=== PATIENT | male | born 1970 | race Caucasian/White ===

== ENCOUNTER 2018-08-03 15:02 | Inpatient (IN) | payer BC, OTHER ==
[2018-08-03 16:06] VITALS: BMI 25.1
--- NOTE | 2018-08-03 18:03 | HP ---
COWS - Scale Resting Pulse: 0= [place] 80 or Below Sweatin= Chills/Flushing Restless Observation: 1= Difficult to Sit Still Pupil Size: 1= Pupils >than Normal Bone or Joint Aches: 2= Severe Diffuse Aches Runny Nose/ Eye Tearin= Runny Nose/Eyes GI Upset > 30mins: 1= Stomach Cramp Tremor Observation: 1= Tremor [place], Not Seen Yawning Observation: 1= 1-2x During Session Anxiety or Irritability: 2=Irritable/Anxious Goose Flesh Skin: 0=Smooth Skin COWS Score: 12 Admission ROS S - HPI Chief Complaint: WITHDRAWAL SYMPTOMS Allergies/Adverse Reactions: Allergies Allergy/AdvReac Type Severity Reaction Status Date / Time No Known Allergies Allergy Verified 08/03/18 16:54 History of Present Illness: 47 Y.O. MAN WITH A 4 YEAR HISTORY OF HEROIN DEPENDENCE IS HERE SEEKING DETOX. HE REPORTS THE LAST COMPLETED DETOX AND REHAB IN [place] IN October,. DOES NOT HAVE A SIGNIFICANT PERIOD OF DRUG ABSTINENCE. PT. HAS A HISTORY OF ALCOHOL AND COCAINE DEPENDENCE AND REPORTS HE HAS BEEN SOBER/ABSTINENT SINCE 2012. Exam Limitations: No Limitations - Ebola screening Have you traveled outside of the country in the last 21 days: No Have you had contact with anyone from an Ebola affected area: No Have you been sick,other than usual withdrawal symptoms: No - Review of Systems Constitutional: Loss of Appetite EENT: reports: No Symptoms Reported Respiratory: reports: No Symptoms reported Cardiac: reports: No Symptoms Reported GI: reports: Poor Appetite, Abdominal cramping : reports: No Symptoms Reported Musculoskeletal: reports: Back Pain Integumentary: reports: No Symptoms Reported Endocrine: reports: No Symptoms Reported Hematology: reports: No Symptoms Reported Psychiatric: reports: Orientated x3, Depressed Other Systems: Reviewed and Negative Patient History - Patient Medical History Hx Anemia: No Hx Asthma: No Hx Chronic Obstructive Pulmonary Disease (COPD): No Hx Cancer: No Hx Cardiac Disorders: No Hx Congestive Heart Failure: No Hx Hypertension: No Hx Hypercholesterolemia: Yes (NOT ON MEDS ) Hx Pacemaker: No HX Cerebrovascular Accident: No Hx Seizures: No Hx Dementia: No Hx Diabetes: No Hx Gastrointestinal Disorders: No Hx Liver Disease: No Hx Genitourinary Disorders: No Hx Sexually Transmitted Disorders: No Hx Renal Disease (ESRD): No Hx Thyroid Disease: No Hx Human Immunodeficiency Virus (HIV): No Hx Hepatitis C: No Hx Depression: Yes Hx Suicide Attempt: No Hx Bipolar Disorder: No Hx Schizophrenia: No - Patient Surgical History Past Surgical History: No Hx Neurologic Surgery: No Hx Cataract Extraction: No Hx Cardiac Surgery: No Hx Lung Surgery: No Hx Breast Surgery: No Hx Breast Biopsy: No Hx Abdominal Surgery: No Hx Appendectomy: No Hx Cholecystectomy: No Hx Genitourinary Surgery: No Hx Section: No Hx Orthopedic Surgery: No Anesthesia Reaction: No - PPD History Previous Implant?: Yes Documented Results: Negative w/o proof Implanted On Prior R Admission?: No PPD to be Administered?: No - Reproductive History Patient is a Female of Child Bearing Age (11 -55 yrs old): No - Smoking Cessation Smoking history: Current every day smoker Aproximately how many cigarettes per day: 20 Hx Chewing Tobacco Use: No Initiated information on smoking cessation: Yes 'Breaking Loose' booklet given: 08/03/18 - Substance & Tx. History Hx Alcohol Use: Yes (SOBER: 2012) Hx Substance Use: Yes Substance Use Type: Heroin Hx Substance Use Treatment: Yes (DETOX AND REHAB: 10/2017 IN [place] ) - Substances Abused Heroin Route: Inhalation Frequency: Daily Amount used: 10 BAGS Age of first use: 44 Date of Last Use: 08/03/18 Family Disease History - Family Disease History Family Disease History: Respiratory: Father (ETOH DEPENDENCE; COPD- ) Admission Physical Exam BHS - Vital Signs Vital Signs: Vital Signs - 24 hr 08/03/18 16:01 Temperature 97 F L Pulse Rate 73 Respiratory 20 Rate Blood Pressure 114/76 - Physical General Appearance: Yes: Sweating, Anxious HEENTM: Yes: Hearing grossly Normal, Normal ENT Inspection, Normocephalic Respiratory: Yes: Chest Non-Tender, Lungs Clear, Normal Breath Sounds, No Respiratory Distress, No Accessory Muscle Use Neck: Yes: Within Normal Limits Breast: Yes: Breast Exam Deferred Cardiology: Yes: Regular Rhythm, Regular Rate Abdominal: Yes: Normal Bowel Sounds, Non Tender Genitourinary: Yes: Other (NO COMPLAINTS REPORTED) Back: Yes: Normal Inspection Musculoskeletal: Yes: Back pain Extremities: Yes: Normal Capillary Refill, Normal Inspection, Normal Range of Motion, Non-Tender Neurological: Yes: Alert, Motor Strength 5/5, Normal Mood/Affect, Normal Response Integumentary: Yes: Normal Color, Dry, Warm Lymphatic: Yes: Within Normal Limits - Diagnostic (1) Opioid dependence with withdrawal Current Visit: Yes Status: Chronic (2) Alcohol dependence in remission Current Visit: Yes Status: Resolved (3) Cocaine dependence in remission Current Visit: Yes Status: Resolved (4) Nicotine dependence Current Visit: Yes Status: Chronic Cleared for Admission [facility] - Detox or Rehab [facility] Level of Care: Medically Managed Detox Regimen/Protocol: Methadone [facility] Breath Alcohol Content Breath Alcohol Content: 0 Urine Drug Screen - Results Drug Screen Negative: No Urine Drug Screen Results: OPI-Opiates, OXY-Oxycodone, FEN-Fentanyl
[2018-08-03] MEDS ORDERED: guaiFENesin/D-METHORPHAN HB 10 ML UNIT-DOSE CUPS PO PRN (18:17)
[2018-08-03] MEDS ORDERED: hydrOXYzine PAMOATE 50 MG CAPSULE (FP) PO PRN (18:17)
[2018-08-03] MEDS ORDERED: ACETAMINOPHEN 325 MG TABLET (FP) PO PRN (18:17)
[2018-08-03] MEDS ORDERED: MAGNESIUM HYDROX 2400MG/30ML ORAL SUSPENSION 30 ML CUP PO PRN (18:17)
[2018-08-03] MEDS ORDERED: NICOTINE POLACRILEX 2 MG GUM BC PRN (18:17)
[2018-08-03] MEDS ORDERED: P-EPHED 60MG/TRIPROLIDI 2.5MG TABLET PO PRN (18:17)
[2018-08-03] MEDS ORDERED: MAGNESIUM CITRATE 300 ML BOTTLE PO PRN (18:17)
[2018-08-03] MEDS ORDERED: LOPERAMIDE HCL 2 MG CAPSULE PO PRN (18:17)
[2018-08-03] MEDS ORDERED: MAG HYDROX/AL HYDROX/SIMETH 30 ML UNIT-DOSE CUP PO PRN (18:17)
[2018-08-03] MEDS ORDERED: MENTHOL/PHENOL 1 EACH UD MM PRN (18:17)
[2018-08-03] MEDS ORDERED: METHADONE HCL 10 MG TABLET (FOR DETOX USE ONLY) PO ONE ×2 (18:45→23:00)
[2018-08-03] MEDS: diazePAM 5 MG TABLET PO PRN (19:10)
[2018-08-03] MEDS ORDERED: MELATONIN 5 MG TABLETS PO PRN (22:00)
[2018-08-03] MEDS: THIAMINE HCL 100 MG TABLET (FP) PO SCH (22:29)
[2018-08-03 23:19] LABS: URINE APPEARANCE CLEAR; URINE BILIRUBIN NEGATIVE (<2.0 mg/dL); URINE COLOR YELLOW; URINE GLUCOSE (UA) NEGATIVE (NEGATIVE); URINE KETONE NEGATIVE (NEGATIVE); URINE LEUK ESTERASE NEGATIVE (NEGATIVE); URINE NITRITE NEGATIVE (NEGATIVE); URINE PROTEIN NEGATIVE (NEGATIVE); URINE UROBILINOGEN NEGATIVE mg/dL (0.2-1.0)
[2018-08-04] MEDS ORDERED: METHADONE HCL 10 MG TABLET (FOR DETOX USE ONLY) PO ONE (10:00)
[2018-08-04 10:05] LABS: HEMATOCRIT 46.1 % (35.4-49); HEMOGLOBIN 15.3 GM/dL (11.7-16.9); MCH 30.4 pg (25.7-33.7); MCHC 33.3 g/dl (32.0-35.9); MEAN CELL VOLUME 91.3 fl (80-96); MEAN PLT VOLUME 9.8 fl (7.5-11.1); PLATELET COUNT 231 K/MM3 (134-434); RBC 5.05 M/mm3 (4.00-5.60); RDW 13.5 % (11.9-15.9); WHITE BLOOD COUNT 7.4 K/mm3 (4.0-10.0)
[2018-08-04 10:29] LABS: ALBUMIN 3.5 g/dl (3.4-5.0); ALK PHOS 80 U/L (45-117); ANION GAP 6 MMOL/L (8-16); BILIRUBIN,TOTAL 0.4 mg/dL (0.2-1); BLOOD UREA NITROGEN 9 mg/dL (7-18); CALCIUM 9.1 mg/dL (8.5-10.1); CHLORIDE 99 mmol/L (98-107); CO2 29 mmol/L (21-32); CREATININE 0.7 mg/dL (0.55-1.3); GLUCOSE,RANDOM 80 mg/dL (74-106); POTASSIUM 4.7 mmol/L (3.5-5.1); SGOT/AST 62 U/L (15-37); SGPT/ALT 97 U/L (13-61); SODIUM 135 mmol/L (136-145); TOT PROT 6.6 g/dl (6.4-8.2)
[2018-08-04] MEDS: NICOTINE 21 MG/24 HOURS TOPICAL PATCH TD SCH (10:37)
[2018-08-04] MEDS: PRENATAL VITAMINS W/ FOLIC ACID TABLET (FP) PO SCH (10:37)
[2018-08-04] MEDS: diazePAM 5 MG TABLET PO PRN ×3 (10:38→22:29)
--- NOTE | 2018-08-04 12:14 | EKG ---
Test Reason : Blood Pressure : / mmHG Vent. Rate : 058 BPM Atrial Rate : 058 BPM P-R Int : 168 ms QRS Dur : 090 ms QT Int : 418 ms P-R-T Axes : 048 063 049 degrees QTc Int : 410 ms SINUS BRADYCARDIA OTHERWISE NORMAL ECG WHEN COMPARED WITH ECG OF 16-OCT-2017 08:52, NO SIGNIFICANT CHANGE WAS FOUND Confirmed by MILLY ANDRE MD ([id number]) on 08/04/2018 12:14:01 PM Referred By: Confirmed By:MLILY ANDRE MD
--- NOTE | 2018-08-04 15:07 | PN ---
BHS COWS - Scale Resting Pulse: 0= [place] 80 or Below Sweatin= Chills/Flushing Restless Observation: 3= Extraneous Movement Pupil Size: 1= Pupils >than Normal Bone or Joint Aches: 2= Severe Diffuse Aches Runny Nose/ Eye Tearin= Runny Nose/Eyes GI Upset > 30mins: 2= Nausea/Diarrhea Tremor Observation of Outstretched Hands: 2= Slight Tremor Visible Yawning Observation: 1= 1-2x During Session Anxiety or Irritability: 2=Irritable/Anxious Goose Flesh Skin: 0=Smooth Skin COWS Score: 16 BHS Progress Note (SOAP) Subjective: Interrupted sleep Objective: 08/04/18 15:08 Last Vital Signs Temp Pulse Resp BP Pulse Ox 98.8 F 63 18 104/70 08/04/18 09:33 08/04/18 09:33 08/04/18 09:33 08/04/18 09:33 Laboratory Tests 08/03/18 08/04/18 08/04/18 23:00 07:00 07:00 WBC 7.4 RBC 5.05 Hgb 15.3 Hct 46.1 MCV 91.3 MCH 30.4 MCHC 33.3 RDW 13.5 Plt Count 231 MPV 9.8 D Sodium 135 L Potassium 4.7 Chloride 99 Carbon Dioxide 29 Anion Gap 6 L BUN 9 Creatinine 0.7 Creat Clearance w eGFR > 60 Random Glucose 80 Calcium 9.1 Total Bilirubin 0.4 AST 62 H ALT 97 H Alkaline Phosphatase 80 Total Protein 6.6 Albumin 3.5 Urine Color Yellow Urine Appearance Clear Urine pH 6.0 Ur Specific [place] 1.020 Urine Protein Negative Urine Glucose (UA) Negative Urine Ketones Negative Urine Blood Negative Urine Nitrite Negative Urine Bilirubin Negative Urine Urobilinogen Negative Ur Leukocyte Esterase Negative RPR Titer 08/04/18 07:00 WBC RBC Hgb Hct MCV MCH MCHC RDW Plt Count MPV Sodium Potassium Chloride Carbon Dioxide Anion Gap BUN Creatinine Creat Clearance w eGFR Random Glucose Calcium Total Bilirubin AST ALT Alkaline Phosphatase Total Protein Albumin Urine Color Urine Appearance Urine pH Ur Specific [place] Urine Protein Urine Glucose (UA) Urine Ketones Urine Blood Urine Nitrite Urine Bilirubin Urine Urobilinogen Ur Leukocyte Esterase RPR Titer Nonreactive Labs reviewed Assessment: 08/04/18 15:09 Withdrawal sxs Plan: Continue detox Encouraged PO water hydration
--- NOTE | 2018-08-04 15:19 | CONSULT ---
[facility] Psychiatric Consult - Data Date of interview: 08/04/18 Admission source: [facility] Identifying data: Patient is a 47 year old single male, without children, unemployed, domiciled, and supported by disability benefits. This is one of multiple admissions for patient. Patient admitted for opiate dependence. Substance Abuse History: Smoking Cessation. Smoking history: Current every day smoker. Aproximately how many cigarettes per day: 20. Hx Chewing Tobacco Use: No. Initiated information on smoking cessation: Yes. 'Breaking Loose' booklet given: 08/03/18. - Substance & Tx. History. Hx Alcohol Use: Yes (SOBER: 2013) . Hx Substance Use: Yes. Substance Use Type: Heroin. Hx Substance Use Treatment: Yes (DETOX AND REHAB: 10/2017 IN [place] ). - Substances Abused. Heroin. Route: Inhalation. Frequency: Daily. Amount used: 10 BAGS. Age of first use: 44. Date of Last Use: 08/03/18 Medical History: hypercholesterolemia Psychiatric History: Patient denies h/o psychiatric hospitalization. Outpatient psychiatric care is provided in [place]. He is currently prescribed lexapro 10mg for depression although reports medication noncompliance for several weeks. He refuses to restart medication while in detox. Patient denies h/o suicide attempt. Physical/Sexual Abuse/Trauma History: denies. Mental Status Exam - Mental Status Exam Alert and Oriented to: Time, Place, Person Cognitive Function: Good Patient Appearance: Well Groomed Mood: Euthymic Affect: Mood Congruent Patient Behavior: Fatigued, Cooperative Speech Pattern: Appropriate Voice Loudness: Normal Thought Process: Intact, Goal Oriented Thought Disorder: Not Present Hallucinations: Denies Suicidal Ideation: Denies Homicidal Ideation: Denies Insight/Judgement: Poor Sleep: Fair Appetite: Fair Muscle strength/Tone: Normal Gait/Station: Normal Psychiatric Findings - Problem List ([place] 1, 2,3) (1) Substance induced mood disorder Current Visit: Yes Status: Acute (2) Opioid dependence with withdrawal Current Visit: Yes Status: Acute (3) Nicotine dependence Current Visit: Yes Status: Chronic - Initial Treatment Plan Initial Treatment Plan: Psychoeducation provided. Detoxification in progress. Observation.
[2018-08-04] MEDS: THIAMINE HCL 100 MG TABLET (FP) PO SCH (22:29)
[2018-08-04] MEDS ORDERED: diphenhydrAMINE HCL 25 MG CAPSULE (FP) PO ONE (22:54)
[2018-08-04] MEDS ORDERED: HYDROCORTISONE 1% TOPICAL CREAM 30 GM TUBE TP PRN (22:54)
[2018-08-05] MEDS ORDERED: METHADONE HCL 5 MG TABLET (FOR DETOX USE ONLY) PO ONE (10:00)
[2018-08-05] MEDS: PRENATAL VITAMINS W/ FOLIC ACID TABLET (FP) PO SCH (10:39)
[2018-08-05] MEDS: NICOTINE 21 MG/24 HOURS TOPICAL PATCH TD SCH (10:40)
[2018-08-05] MEDS: diazePAM 5 MG TABLET PO PRN ×3 (10:40→22:22)
[2018-08-05] MEDS: IBUPROFEN 400 MG TABLET (FP) PO PRN (16:54)
--- NOTE | 2018-08-05 16:56 | PN ---
BHS COWS - Scale Resting Pulse: 0= [place] 80 or Below Sweatin= Chills/Flushing Restless Observation: 3= Extraneous Movement Pupil Size: 0= Normal to Room Light Bone or Joint Aches: 2= Severe Diffuse Aches Runny Nose/ Eye Tearin= Runny Nose/Eyes GI Upset > 30mins: 1= Stomach Cramp Tremor Observation of Outstretched Hands: 2= Slight Tremor Visible Yawning Observation: 1= 1-2x During Session Anxiety or Irritability: 2=Irritable/Anxious Goose Flesh Skin: 0=Smooth Skin COWS Score: 14 S Progress Note (SOAP) Subjective: Back pain, interrupted sleep, sweating Objective: 08/05/18 16:55 Last Vital Signs Temp Pulse Resp BP Pulse Ox 96.4 F L 77 18 119/71 08/05/18 14:31 08/05/18 14:31 08/05/18 14:31 08/05/18 14:31 Laboratory Tests 08/03/18 08/04/18 08/04/18 23:00 07:00 07:00 WBC 7.4 RBC 5.05 Hgb 15.3 Hct 46.1 MCV 91.3 MCH 30.4 MCHC 33.3 RDW 13.5 Plt Count 231 MPV 9.8 D Sodium 135 L Potassium 4.7 Chloride 99 Carbon Dioxide 29 Anion Gap 6 L BUN 9 Creatinine 0.7 Creat Clearance w eGFR > 60 Random Glucose 80 Calcium 9.1 Total Bilirubin 0.4 AST 62 H ALT 97 H Alkaline Phosphatase 80 Total Protein 6.6 Albumin 3.5 Urine Color Yellow Urine Appearance Clear Urine pH 6.0 Ur Specific [place] 1.020 Urine Protein Negative Urine Glucose (UA) Negative Urine Ketones Negative Urine Blood Negative Urine Nitrite Negative Urine Bilirubin Negative Urine Urobilinogen Negative Ur Leukocyte Esterase Negative RPR Titer 08/04/18 07:00 WBC RBC Hgb Hct MCV MCH MCHC RDW Plt Count MPV Sodium Potassium Chloride Carbon Dioxide Anion Gap BUN Creatinine Creat Clearance w eGFR Random Glucose Calcium Total Bilirubin AST ALT Alkaline Phosphatase Total Protein Albumin Urine Color Urine Appearance Urine pH Ur Specific [place] Urine Protein Urine Glucose (UA) Urine Ketones Urine Blood Urine Nitrite Urine Bilirubin Urine Urobilinogen Ur Leukocyte Esterase RPR Titer Nonreactive Labs reviewed Assessment: 08/05/18 16:55 Withdrawal sxs Plan: Continue detox Encouraged PO water intake
[2018-08-05] MEDS: THIAMINE HCL 100 MG TABLET (FP) PO SCH (22:22)
[2018-08-05] MEDS: HYDROCORTISONE 1% TOPICAL CREAM 30 GM TUBE TP SCH (22:22)
[2018-08-06] MEDS: diazePAM 5 MG TABLET PO PRN (06:00)
[2018-08-06] MEDS: IBUPROFEN 400 MG TABLET (FP) PO PRN (06:01)
[2018-08-06] MEDS ORDERED: METHADONE HCL 5 MG TABLET (FOR DETOX USE ONLY) PO ONE (10:00)
[2018-08-06] MEDS ORDERED: METHADONE HCL 10 MG TABLET (FOR DETOX USE ONLY) PO ONE (10:16)
--- NOTE | 2018-08-06 10:29 | PN ---
BHS Progress Note (SOAP) Subjective: alert,irritable,anxious,interrupted sleep,pain in the body Objective: 08/06/18 10:25 Vital Signs Temperature 97.2 F L 08/06/18 06:18 Pulse Rate 63 08/06/18 06:18 Respiratory Rate 16 08/06/18 06:18 Blood Pressure 98/58 L 08/06/18 06:18 O2 Sat by Pulse Oximetry (%) Assessment: 08/06/18 10:25 withdrawal symptom Plan: continue detox,medication,,adjust,to be discharged in am
[2018-08-06] MEDS: PRENATAL VITAMINS W/ FOLIC ACID TABLET (FP) PO SCH (10:39)
[2018-08-06] MEDS: HYDROCORTISONE 1% TOPICAL CREAM 30 GM TUBE TP SCH (10:40)
[2018-08-06 11:22] VITALS: BP 104/64; PULSE 73; TEMP 98.6
--- NOTE | 2018-08-06 11:22 | PN ---
[facility] Progress Note Note: patient did not want to complete treatment,declined to give the reason,all attempts to convince patient to stay with no avail, patient signed release ama,risk of withdrawal and relapse explained,patient understood,advise to go to emergency room if any problem
--- NOTE | 2018-08-06 11:49 | DS ---
[facility] Detox Discharge Summary Admission Date: 08/03/18 Discharge Date: 08/06/18 - History Present History: Alcohol Dependence, Cocaine Dependence, Opioid Dependence Additional Comments: patient signed release ama,please see the note Pertinent Past History: nicotine dependence - Physical Exam Results Vital Signs: Vital Signs Temperature 98.6 F 08/06/18 10:00 Pulse Rate 73 08/06/18 10:00 Respiratory Rate 18 08/06/18 10:00 Blood Pressure 104/64 08/06/18 10:00 O2 Sat by Pulse Oximetry (%) Pertinent Admission Physical Exam Findings: withdrawal signs and symptom Laboratory Last Values WBC 7.4 K/mm3 (4.0-10.0) 08/04/18 07:00 RBC 5.05 M/mm3 (4.00-5.60) 08/04/18 07:00 Hgb 15.3 GM/dL (11.7-16.9) 08/04/18 07:00 Hct 46.1 % (35.4-49) 08/04/18 07:00 MCV 91.3 fl (80-96) 08/04/18 07:00 MCH 30.4 pg (25.7-33.7) 08/04/18 07:00 MCHC 33.3 g/dl (32.0-35.9) 08/04/18 07:00 RDW 13.5 % (11.9-15.9) 08/04/18 07:00 Plt Count 231 K/MM3 (134-434) 08/04/18 07:00 MPV 9.8 fl (7.5-11.1) D 08/04/18 07:00 Sodium 135 mmol/L (136-145) L 08/04/18 07:00 Potassium 4.7 mmol/L (3.5-5.1) 08/04/18 07:00 Chloride 99 mmol/L (98-107) 08/04/18 07:00 Carbon Dioxide 29 mmol/L (21-32) 08/04/18 07:00 Anion Gap 6 MMOL/L (8-16) L 08/04/18 07:00 BUN 9 mg/dL (7-18) 08/04/18 07:00 Creatinine 0.7 mg/dL (0.55-1.3) 08/04/18 07:00 Creat Clearance w eGFR > 60 (>60) 08/04/18 07:00 Random Glucose 80 mg/dL (74-106) 08/04/18 07:00 Calcium 9.1 mg/dL (8.5-10.1) 08/04/18 07:00 Total Bilirubin 0.4 mg/dL (0.2-1) 08/04/18 07:00 AST 62 U/L (15-37) H 08/04/18 07:00 ALT 97 U/L (13-61) H 08/04/18 07:00 Alkaline Phosphatase 80 U/L (45-117) 08/04/18 07:00 Total Protein 6.6 g/dl (6.4-8.2) 08/04/18 07:00 Albumin 3.5 g/dl (3.4-5.0) 08/04/18 07:00 Urine Color Yellow 08/03/18 23:00 Urine Appearance Clear 08/03/18 23:00 Urine pH 6.0 (5.0-8.0) 08/03/18 23:00 Ur Specific [place] 1.020 (1.010-1.035) 08/03/18 23:00 Urine Protein Negative (NEGATIVE) 08/03/18 23:00 Urine Glucose (UA) Negative (NEGATIVE) 08/03/18 23:00 Urine Ketones Negative (NEGATIVE) 08/03/18 23:00 Urine Blood Negative (NEGATIVE) 08/03/18 23:00 Urine Nitrite Negative (NEGATIVE) 08/03/18 23:00 Urine Bilirubin Negative (<2.0 mg/dL) 08/03/18 23:00 Urine Urobilinogen Negative mg/dL (0.2-1.0) 08/03/18 23:00 Ur Leukocyte Esterase Negative (NEGATIVE) 08/03/18 23:00 RPR Titer Nonreactive (NONREACTIVE) 08/04/18 07:00 - Medication Discharge Medications: Ambulatory Orders Escitalopram Oxalate [Lexapro -] 10 mg PO DAILY 08/03/18 - AMA Did Patient Leave Against Medical Advice: Yes
[2018-08-07] MEDS ORDERED: METHADONE HCL 5 MG TABLET (FOR DETOX USE ONLY) PO ONE (06:00)
[2018-08-07] MEDS ORDERED: METHADONE HCL 10 MG TABLET (FOR DETOX USE ONLY) PO ONE (10:00)
[2018-08-08] MEDS ORDERED: METHADONE HCL 5 MG TABLET (FOR DETOX USE ONLY) PO ONE (06:00)
== END 2018-08-06 11:00 | disposition left against medical advice (07) | DRG 894 ==
LOC: YASAS 15:02 → Y3N 17:25
PROC: HZ2ZZZZ Detoxification Services for Substance Abuse Treatment (ICD-10-PCS; principal; 2018-08-03)
DX: F11.23 Opioid dependence with withdrawal (principal); F14.20 Cocaine dependence, uncomplicated; F10.230 Alcohol dependence with withdrawal, uncomplicated; F17.210 Nicotine dependence, cigarettes, uncomplicated; F32.9 Major depressive disorder, single episode, unspecified; E78.5 Hyperlipidemia, unspecified; E78.00 Pure hypercholesterolemia, unspecified
CPT/HCPCS: 36415; 80053; 81003; 85027; 86593; 93005; 93010

== ENCOUNTER 2018-09-26 14:10 | Inpatient (IN) | payer OTHER ==
[2018-09-26 17:19] VITALS: BMI 26.6
--- NOTE | 2018-09-26 19:40 | HP ---
"COWS - Scale Resting Pulse: 1= [place] 81-100 Sweatin=Flushed/Facial Moisture Restless Observation: 1= Difficult to Sit Still Pupil Size: 2= Moderately Dilated (Pupils = 4 mm) Bone or Joint Aches: 0= None Runny Nose/ Eye Tearin= Runny Nose/Eyes GI Upset > 30mins: 0= None Tremor Observation: 2= Slight Tremor Visible Yawning Observation: 0= None Anxiety or Irritability: 2=Irritable/Anxious Goose Flesh Skin: 0=Smooth Skin COWS Score: 12 CIWA Score - Admission Criteria OAS Guidelines: Admission for Medically Managed Detox: Requires at least one of the followin. CIWA greater than 12 2. Seizures within the past 24 hours 3. Delirium tremens within the past 24 hours 4. Hallucinations within the past 24 hours 5. Acute intervention needed for co occurring medical disorder 6. Acute intervention needed for co occurring psychiatric disorder 7. Severe withdrawal that cannot be handled at a lower level of care (continued vomiting, continued diarrhea, abnormal vital signs) requiring intravenous medication and/or fluids 8. Admission ROS [facility] Chief Complaint: Here for heroin withdrawal. Allergies/Adverse Reactions: Allergies Allergy/AdvReac Type Severity Reaction Status Date / Time No Known Allergies Allergy Verified 09/26/18 17:48 History of Present Illness: Here for heroin detox. Heroin use began at age 44. States smokes and snorts. Nicotine use since age 16. Alcohol use prior to starting opiates. Denies current alcohol intake at this time. Prescribed Clonazepam 2 mg daily. States it goes good w/ the heroin. Encourage to d/c clonazepam. Longest period of sobriety is 40-50 days while using AA. Denies hx seizures, blackouts or overdose. Hx constipation which aggravates hemorrhoids. Search Terms: Rubio Khan, 1970 Search Date: 09/26/2018 07:38:42 PM The Drug Utilization Report below displays all of the controlled substance prescriptions, if any, that your patient has filled in the last twelve months. The information displayed on this report is compiled from pharmacy submissions to the Department, and accurately reflects the information as submitted by the pharmacies. This report was requested by: Riri Joy | Reference #: [id number] Others' Prescriptions Patient Name: Rubio Khan Date: 1970 Address: [address] [place] [address] Sex: Female Rx Written Rx Dispensed Drug Quantity Days Supply Prescriber Name 09/12/2018 09/13/2018 clonazepam 2 mg tablet 30 30 Toby Andre MD 08/15/2018 08/15/2018 clonazepam 2 mg tablet 30 30 Toby Andre MD 07/06/2018 07/06/2018 clonazepam 2 mg tablet 30 30 Toby Andre MD Exam Limitations: No Limitations - Ebola screening Have you traveled outside of the country in the last 21 days: No Have you had contact with anyone from an Ebola affected area: No Have you been sick,other than usual withdrawal symptoms: No Do you have a fever: No - Review of Systems Constitutional: Chills, Diaphoresis EENT: reports: Blurred Vision (Wears glasses), Nose Congestion Respiratory: reports: SOB with Exertion Cardiac: reports: No Symptoms Reported GI: reports: Blood Streaked Bowels (Hx hemorrhoids), Constipated (Last BM 2 days ago - black w/ streaks of blood - Sates has hemorrhoids.) : reports: No Symptoms Reported Musculoskeletal: reports: Back Pain (LBP history. States has bulging discs. Denies pain at this time.) Integumentary: reports: No Symptoms Reported Neuro: reports: Tremors Endocrine: reports: No Symptoms Reported Hematology: reports: No Symptoms Reported Psychiatric: reports: Judgement Intact, Orientated x3, Agitated, Anxious, Depressed (Denies thoughts of harming self or others.) Patient History - Patient Medical History Hx Anemia: No Hx Asthma: No Hx Chronic Obstructive Pulmonary Disease (COPD): No Hx Cancer: No Hx Cardiac Disorders: No Hx Congestive Heart Failure: No Hx Hypertension: No Hx Hypercholesterolemia: Yes (NOT ON MEDS ) Hx Pacemaker: No HX Cerebrovascular Accident: No Hx Seizures: No Hx Dementia: No Hx Diabetes: No Hx Gastrointestinal Disorders: No Hx Liver Disease: No Hx Genitourinary Disorders: No Hx Sexually Transmitted Disorders: No Hx Renal Disease (ESRD): No Hx Thyroid Disease: No Hx Human Immunodeficiency Virus (HIV): No Hx Hepatitis C: No Hx Depression: Yes Hx Suicide Attempt: No Hx Bipolar Disorder: No Hx Schizophrenia: No - Patient Surgical History Past Surgical History: No Hx Neurologic Surgery: No Hx Cataract Extraction: No Hx Cardiac Surgery: No Hx Lung Surgery: No Hx Breast Surgery: No Hx Breast Biopsy: No Hx Abdominal Surgery: No Hx Appendectomy: No Hx Cholecystectomy: No Hx Genitourinary Surgery: No Hx Section: No Hx Orthopedic Surgery: No Anesthesia Reaction: No - PPD History Previous Implant?: Yes Documented Results: Negative w/proof Implanted On Prior [facility] Admission?: Yes Date: 08/05/18 Results: 0 mm PPD to be Administered?: No - Smoking Cessation Smoking history: Current every day smoker Have you smoked in the past 12 months: Yes Aproximately how many cigarettes per day: 20 Hx Chewing Tobacco Use: No Initiated information on smoking cessation: Yes 'Breaking Loose' booklet given: 09/26/18 - Substance & Tx. History Hx Alcohol Use: No Hx Substance Use: Yes Substance Use Type: Alcohol, Heroin Hx Substance Use Treatment: Yes (detox, rehab) - Substances Abused Heroin Route: Inhalation Frequency: Daily Amount used: 10-15 bags Age of first use: 45 Date of Last Use: 09/26/18 Family Disease History - Family Disease History Family Disease History: Respiratory: Father (ETOH DEPENDENCE; COPD- ) Admission Physical Exam [facility] - Vital Signs Vital Signs: Vital Signs - 24 hr 09/26/18 17:17 Temperature 98.6 F Pulse Rate 93 H Respiratory 18 Rate Blood Pressure 108/67 - Physical General Appearance: Yes: Mild Distress, Tremorous, Irritable, Sweating, Anxious HEENTM: Yes: EOMI, Hearing grossly Normal, Normocephalic, Normal Voice, CHANTEL ( Pupil = 4 mm), Other (Ulcerated area (L) tongue approc 1 cm oval w/o exudate) Respiratory: Yes: Lungs Clear, Normal Breath Sounds, No Respiratory Distress Neck: Yes: No masses,lesions,Nodules, Supple Breast: Yes: Breast Exam Deferred Cardiology: Yes: Regular Rhythm, Regular Rate, S1, S2 Abdominal: Yes: Non Tender, Flat, Soft, Increased Bowel Sounds Genitourinary: Yes: Within Normal Limits Back: Yes: Normal Inspection Musculoskeletal: Yes: full range of Motion, Gait Steady Extremities: Yes: Normal Capillary Refill, Normal Range of Motion, Non-Tender, Tremors (Mild tremors of hands when arms elevated.) Neurological: Yes: tool planner II-XII NML intact, Fully Oriented, Motor Strength 5/5, Normal Mood/Affect Integumentary: Yes: Normal Color, Dry, Warm Lymphatic: Yes: Within Normal Limits - Diagnostic (1) Opioid dependence with withdrawal Current Visit: Yes Status: Acute (2) Nicotine dependence Current Visit: Yes Status: Chronic Qualifiers: Nicotine product type: cigarettes Substance use status: uncomplicated Qualified Code(s): F17.210 - Nicotine dependence, cigarettes, uncomplicated (3) Tongue ulcer Current Visit: Yes Status: Acute (4) Constipation Current Visit: Yes Status: Chronic Qualifiers: Constipation type: unspecified constipation type Qualified Code(s): K59.00 - Constipation, unspecified Cleared for Admission [facility] - Detox or Rehab [facility] Level of Care: Medically Managed Detox Regimen/Protocol: Methadone [facility] Breath Alcohol Content Breath Alcohol Content: 0 Urine Drug Screen - Results Drug Screen Negative: No Urine Drug Screen Results: OPI-Opiates, FEN-Fentanyl"
[2018-09-26] MEDS ORDERED: MAG HYDROX/AL HYDROX/SIMETH 30 ML UNIT-DOSE CUP PO PRN (20:16)
[2018-09-26] MEDS ORDERED: ACETAMINOPHEN 325 MG TABLET (FP) PO PRN (20:16)
[2018-09-26] MEDS ORDERED: IBUPROFEN 400 MG TABLET (FP) PO PRN (20:16)
[2018-09-26] MEDS ORDERED: MAGNESIUM CITRATE 300 ML BOTTLE PO PRN (20:16)
[2018-09-26] MEDS ORDERED: LOPERAMIDE HCL 2 MG CAPSULE PO PRN (20:16)
[2018-09-26] MEDS ORDERED: NICOTINE POLACRILEX 2 MG GUM BC PRN (20:16)
[2018-09-26] MEDS ORDERED: MAGNESIUM HYDROX 2400MG/30ML ORAL SUSPENSION 30 ML CUP PO PRN (20:16)
[2018-09-26] MEDS ORDERED: MENTHOL/PHENOL 1 EACH UD MM PRN (20:16)
[2018-09-26] MEDS ORDERED: METHADONE HCL 10 MG TABLET (FOR DETOX USE ONLY) PO ONE ×2 (20:30→23:00)
[2018-09-26] MEDS: diazePAM 5 MG TABLET PO PRN (21:10)
[2018-09-26] MEDS ORDERED: MELATONIN 5 MG TABLETS PO PRN (22:00)
[2018-09-26] MEDS: THIAMINE HCL 100 MG TABLET (FP) PO SCH (22:29)
[2018-09-27] MEDS: DOCUSATE SODIUM 100 MG CAPSULE (FP) PO SCH ×3 (06:20→22:19)
[2018-09-27 09:49] LABS: HEMATOCRIT 42.3 % (35.4-49); HEMOGLOBIN 13.9 GM/dL (11.7-16.9); MCH 29.8 pg (25.7-33.7); MCHC 32.9 g/dl (32.0-35.9); MEAN CELL VOLUME 90.4 fl (80-96); MEAN PLT VOLUME 8.9 fl (7.5-11.1); PLATELET COUNT 315 K/MM3 (134-434); RBC 4.68 M/mm3 (4.00-5.60); RDW 13.3 % (11.9-15.9); WHITE BLOOD COUNT 6.8 K/mm3 (4.0-10.0)
[2018-09-27] MEDS ORDERED: METHADONE HCL 10 MG TABLET (FOR DETOX USE ONLY) PO ONE (10:00)
--- NOTE | 2018-09-27 10:07 | PN ---
BHS COWS - Scale Resting Pulse: 1= OK 81-100 Sweatin=Flushed/Facial Moisture Restless Observation: 1= Difficult to Sit Still Pupil Size: 0= Normal to Room Light Bone or Joint Aches: 2= Severe Diffuse Aches Runny Nose/ Eye Tearin= Nasal Congestion GI Upset > 30mins: 0= None Tremor Observation of Outstretched Hands: 2= Slight Tremor Visible Yawning Observation: 1= 1-2x During Session Anxiety or Irritability: 2=Irritable/Anxious Goose Flesh Skin: 3=Piloerection COWS Score: 15 BHS Progress Note (SOAP) Subjective: tired sweats shakes interrupted sleep body aches irritable agitation headache Objective: 09/27/18 10:05 Vital Signs Temperature 98.2 F 09/27/18 09:17 Pulse Rate 81 09/27/18 09:17 Respiratory Rate 16 09/27/18 09:17 Blood Pressure 108/51 L 09/27/18 09:17 O2 Sat by Pulse Oximetry (%) Laboratory Tests 09/27/18 07:00 WBC 6.8 RBC 4.68 Hgb 13.9 Hct 42.3 MCV 90.4 MCH 29.8 MCHC 32.9 RDW 13.3 Plt Count 315 D MPV 8.9 rest of labs pending aaox3 ambulating no acute distress Assessment: 09/27/18 10:05 withdrawal sx Plan: continue detox increase fluids zofran SL prn tylenol/motrin prn
[2018-09-27 10:08] LABS: ALBUMIN 3.2 g/dl (3.4-5.0); ALK PHOS 71 U/L (45-117); ANION GAP 8 MMOL/L (8-16); BILIRUBIN,TOTAL 0.4 mg/dL (0.2-1); BLOOD UREA NITROGEN 9 mg/dL (7-18); CALCIUM 8.5 mg/dL (8.5-10.1); CHLORIDE 101 mmol/L (98-107); CO2 27 mmol/L (21-32); CREATININE 0.6 mg/dL (0.55-1.3); GLUCOSE,RANDOM 90 mg/dL (74-106); POTASSIUM 4.5 mmol/L (3.5-5.1); SGOT/AST 21 U/L (15-37); SGPT/ALT 30 U/L (13-61); SODIUM 137 mmol/L (136-145); TOT PROT 6.2 g/dl (6.4-8.2)
[2018-09-27] MEDS: PRENATAL VITAMINS W/ FOLIC ACID TABLET (FP) PO SCH (10:21)
[2018-09-27] MEDS: NICOTINE 21 MG/24 HOURS TOPICAL PATCH TD SCH (10:21)
[2018-09-27] MEDS: diazePAM 5 MG TABLET PO PRN ×2 (10:21→22:19)
--- NOTE | 2018-09-27 10:27 | CONSULT ---
[facility] Psychiatric Consult - Data Date of interview: 09/27/18 Admission source: [facility] Identifying data: Patient is a 48 year old single male, without children, unemployed, domiciled, and is supported by his disability benefits. THis is one of multiple admissions for patient. Patient admitted to for opioid dependence. Substance Abuse History: Smoking Cessation. Smoking history: Current every day smoker. Have you smoked in the past 12 months: Yes. Aproximately how many cigarettes per day: 20. Hx Chewing Tobacco Use: No. Initiated information on smoking cessation: Yes. 'Breaking Loose' booklet given: 09/26/18. - Substance & Tx. History. Hx Alcohol Use: No. Hx Substance Use: Yes. Substance Use Type : Alcohol, Heroin. Hx Substance Use Treatment: Yes (detox, rehab). - Substances Abused. Heroin. Route: Inhalation. Frequency: Daily. Amount used: 10-15 bags. Age of first use: 45. Date of Last Use: 09/26/18 Medical History: hypercholesterolemia Psychiatric History: Patient denies h/o psychiatric hospitalizations. Current outpatient psychatric care is provided in [place], [place]. He is prescribed lexapro 20mg and klonopin 2mg daily. Patient is noncompliant to lexapro. As per pharmacy claims, patient has been tried on seroquel, abilify, and lamictal. At present, patient reports feeling tired and is requesting medication for insomnia. Physical/Sexual Abuse/Trauma History: denies. Mental Status Exam - Mental Status Exam Alert and Oriented to: Time, Place, Person Cognitive Function: Good Patient Appearance: Well Groomed Mood: Withdrawn Affect: Mood Congruent Patient Behavior: Fatigued, Guarded Speech Pattern: Delayed Voice Loudness: Moderately Soft/Quiet Thought Process: Goal Oriented Thought Disorder: Not Present Hallucinations: Denies Suicidal Ideation: Denies Homicidal Ideation: Denies Insight/Judgement: Poor Sleep: Poorly Appetite: Fair Muscle strength/Tone: Normal Gait/Station: Normal Psychiatric Findings - Problem List (Premier 1, 2,3) (1) Substance-induced sleep disorder Current Visit: Yes Status: Acute (2) Opioid dependence with withdrawal Current Visit: Yes Status: Acute (3) Nicotine dependence Current Visit: Yes Status: Chronic Qualifiers: Nicotine product type: cigarettes Substance use status: uncomplicated Qualified Code(s): F17.210 - Nicotine dependence, cigarettes, uncomplicated (4) Substance induced mood disorder Current Visit: Yes Status: Acute - Initial Treatment Plan Initial Treatment Plan: Psychoeducation provided. Detoxifcation in progress. Will order Seroquel 50mg qhs. Benefits and side effects discussed. Verbal consent given.
[2018-09-27] MEDS: THIAMINE HCL 100 MG TABLET (FP) PO SCH (22:19)
[2018-09-27] MEDS: QUEtiapine FUMARATE 50 MG TABLET PO SCH (22:19)
[2018-09-28] MEDS: diazePAM 5 MG TABLET PO PRN ×3 (05:51→23:47)
[2018-09-28] MEDS: DOCUSATE SODIUM 100 MG CAPSULE (FP) PO SCH ×3 (05:51→23:13)
[2018-09-28] MEDS ORDERED: METHADONE HCL 5 MG TABLET (FOR DETOX USE ONLY) PO ONE (10:00)
--- NOTE | 2018-09-28 10:10 | PN ---
[facility] COWS - Scale Resting Pulse: 1= ID 81-100 Sweatin= Chills/Flushing Restless Observation: 1= Difficult to Sit Still Pupil Size: 0= Normal to Room Light Bone or Joint Aches: 1= Mild Discomfort Runny Nose/ Eye Tearin= Nasal Congestion GI Upset > 30mins: 0= None Tremor Observation of Outstretched Hands: 2= Slight Tremor Visible Yawning Observation: 2= >3x During Session Anxiety or Irritability: 2=Irritable/Anxious Goose Flesh Skin: 0=Smooth Skin COWS Score: 11 BHS Progress Note (SOAP) Subjective: sweats sleepy body aches tired Objective: 09/28/18 10:09 Vital Signs Temperature 98.7 F 09/28/18 09:45 Pulse Rate 85 09/28/18 09:45 Respiratory Rate 18 09/28/18 09:45 Blood Pressure 105/58 L 09/28/18 09:45 O2 Sat by Pulse Oximetry (%) Laboratory Tests 09/27/18 09/27/18 09/27/18 07:00 07:00 07:00 WBC 6.8 RBC 4.68 Hgb 13.9 Hct 42.3 MCV 90.4 MCH 29.8 MCHC 32.9 RDW 13.3 Plt Count 315 D MPV 8.9 Sodium 137 Potassium 4.5 Chloride 101 Carbon Dioxide 27 Anion Gap 8 BUN 9 Creatinine 0.6 Creat Clearance w eGFR > 60 Random Glucose 90 Calcium 8.5 Total Bilirubin 0.4 AST 21 ALT 30 Alkaline Phosphatase 71 Total Protein 6.2 L Albumin 3.2 L RPR Titer Nonreactive aaox3 ambulating no acute distress Assessment: 09/28/18 10:09 withdrawal sx Plan: continue detox increase fluids
[2018-09-28] MEDS: NICOTINE 21 MG/24 HOURS TOPICAL PATCH TD SCH (10:40)
[2018-09-28] MEDS: PRENATAL VITAMINS W/ FOLIC ACID TABLET (FP) PO SCH (10:40)
[2018-09-28] MEDS: QUEtiapine FUMARATE 50 MG TABLET PO SCH (23:13)
[2018-09-28] MEDS: THIAMINE HCL 100 MG TABLET (FP) PO SCH (23:13)
[2018-09-29] MEDS: DOCUSATE SODIUM 100 MG CAPSULE (FP) PO SCH ×3 (06:43→22:16)
[2018-09-29] MEDS ORDERED: METHADONE HCL 5 MG TABLET (FOR DETOX USE ONLY) PO ONE (10:00)
[2018-09-29] MEDS: NICOTINE 21 MG/24 HOURS TOPICAL PATCH TD SCH (10:18)
[2018-09-29] MEDS: PRENATAL VITAMINS W/ FOLIC ACID TABLET (FP) PO SCH (10:18)
--- NOTE | 2018-09-29 10:34 | PN ---
BHS Progress Note (SOAP) Subjective: sweats irritable body aches Objective: 09/29/18 10:33 Vital Signs Temperature 98.1 F 09/29/18 09:04 Pulse Rate 69 09/29/18 09:04 Respiratory Rate 18 09/29/18 09:04 Blood Pressure 115/68 09/29/18 09:04 O2 Sat by Pulse Oximetry (%) aaox3 ambulating no acute distress Assessment: 09/29/18 10:33 withdrawal sx Plan: continue detox increase fluids
[2018-09-29] MEDS: THIAMINE HCL 100 MG TABLET (FP) PO SCH (22:16)
[2018-09-29] MEDS: QUEtiapine FUMARATE 50 MG TABLET PO SCH (22:16)
[2018-09-30] MEDS: DOCUSATE SODIUM 100 MG CAPSULE (FP) PO SCH ×3 (07:55→22:29)
[2018-09-30] MEDS ORDERED: METHADONE HCL 10 MG TABLET (FOR DETOX USE ONLY) PO ONE (10:00)
--- NOTE | 2018-09-30 10:44 | PN ---
BHS Progress Note (SOAP) Subjective: need ensure tired Objective: 09/30/18 10:55 Vital Signs Temperature 98.1 F 09/30/18 06:00 Pulse Rate 60 09/30/18 06:00 Respiratory Rate 18 09/30/18 06:00 Blood Pressure 116/71 09/30/18 06:00 O2 Sat by Pulse Oximetry (%) aaox3 ambulating no acute distress Assessment: 09/30/18 10:56 mild withdrawal sx Plan: ensure plus 120ml po bid increase fluids d/c in am
[2018-09-30] MEDS: PRENATAL VITAMINS W/ FOLIC ACID TABLET (FP) PO SCH (11:05)
[2018-09-30] MEDS: NICOTINE 21 MG/24 HOURS TOPICAL PATCH TD SCH (11:05)
[2018-09-30] MEDS: THIAMINE HCL 100 MG TABLET (FP) PO SCH (22:29)
[2018-09-30] MEDS: QUEtiapine FUMARATE 50 MG TABLET PO SCH (22:29)
[2018-10-01] MEDS ORDERED: METHADONE HCL 5 MG TABLET (FOR DETOX USE ONLY) PO ONE (06:00)
[2018-10-01] MEDS: DOCUSATE SODIUM 100 MG CAPSULE (FP) PO SCH (07:26)
[2018-10-01 09:26] VITALS: BP 108/63; PULSE 65; TEMP 98.1
--- NOTE | 2018-10-01 14:48 | DS ---
[facility] Detox Discharge Summary Admission Date: 09/26/18 Discharge Date: 10/01/18 - History Present History: Alcohol Dependence, Cannabis Dependence, Cocaine Dependence, Opioid Dependence Pertinent Past History: HLD - Physical Exam Results Vital Signs: Vital Signs Temperature 98.1 F 10/01/18 09:26 Pulse Rate 65 10/01/18 09:26 Respiratory Rate 18 10/01/18 09:26 Blood Pressure 108/63 10/01/18 09:26 O2 Sat by Pulse Oximetry (%) Pertinent Admission Physical Exam Findings: Withdrawal sx Laboratory Last Values WBC 6.8 K/mm3 (4.0-10.0) 09/27/18 07:00 RBC 4.68 M/mm3 (4.00-5.60) 09/27/18 07:00 Hgb 13.9 GM/dL (11.7-16.9) 09/27/18 07:00 Hct 42.3 % (35.4-49) 09/27/18 07:00 MCV 90.4 fl (80-96) 09/27/18 07:00 MCH 29.8 pg (25.7-33.7) 09/27/18 07:00 MCHC 32.9 g/dl (32.0-35.9) 09/27/18 07:00 RDW 13.3 % (11.9-15.9) 09/27/18 07:00 Plt Count 315 K/MM3 (134-434) D 09/27/18 07:00 MPV 8.9 fl (7.5-11.1) 09/27/18 07:00 Sodium 137 mmol/L (136-145) 09/27/18 07:00 Potassium 4.5 mmol/L (3.5-5.1) 09/27/18 07:00 Chloride 101 mmol/L (98-107) 09/27/18 07:00 Carbon Dioxide 27 mmol/L (21-32) 09/27/18 07:00 Anion Gap 8 MMOL/L (8-16) 09/27/18 07:00 BUN 9 mg/dL (7-18) 09/27/18 07:00 Creatinine 0.6 mg/dL (0.55-1.3) 09/27/18 07:00 Creat Clearance w eGFR > 60 (>60) 12/04/18 07:00 Random Glucose 90 mg/dL (74-106) 09/27/18 07:00 Calcium 8.5 mg/dL (8.5-10.1) 09/27/18 07:00 Total Bilirubin 0.4 mg/dL (0.2-1) 09/27/18 07:00 AST 21 U/L (15-37) 09/27/18 07:00 ALT 30 U/L (13-61) 09/27/18 07:00 Alkaline Phosphatase 71 U/L (45-117) 09/27/18 07:00 Total Protein 6.2 g/dl (6.4-8.2) L 09/27/18 07:00 Albumin 3.2 g/dl (3.4-5.0) L 09/27/18 07:00 RPR Titer Nonreactive (NONREACTIVE) 09/27/18 07:00 Labs noted - Treatment Hospital Course: Detox Protocol Followed, Detoxed Safely, Responded well, Discharged Condition Good - Medication Discharge Medications: Ambulatory Orders Escitalopram Oxalate [Lexapro -] 10 mg PO DAILY 08/03/18 - Diagnosis (1) Alcohol dependence with uncomplicated withdrawal Status: Acute (2) Cocaine dependence Status: Acute (3) Opioid dependence with withdrawal Status: Acute (4) Substance induced mood disorder Status: Acute (5) HLD (hyperlipidemia) Status: Chronic (6) Nicotine dependence Status: Chronic Qualifiers: Nicotine product type: cigarettes Substance use status: uncomplicated Qualified Code(s): F17.210 - Nicotine dependence, cigarettes, uncomplicated - AMA Did Patient Leave Against Medical Advice: No
== END 2018-10-01 09:45 | disposition home or self-care (01) | DRG 897 ==
LOC: YASAS 14:10 → Y6N 20:29
PROC: HZ2ZZZZ Detoxification Services for Substance Abuse Treatment (ICD-10-PCS; principal; 2018-09-26)
DX: F11.23 Opioid dependence with withdrawal (principal); F14.20 Cocaine dependence, uncomplicated; F19.282 Other psychoactive substance dependence with psychoactive substance-induced sleep disorder; F10.230 Alcohol dependence with withdrawal, uncomplicated; F12.20 Cannabis dependence, uncomplicated; F17.210 Nicotine dependence, cigarettes, uncomplicated; F19.24 Other psychoactive substance dependence with psychoactive substance-induced mood disorder; E78.00 Pure hypercholesterolemia, unspecified; E78.5 Hyperlipidemia, unspecified; K59.00 Constipation, unspecified; K14.0 Glossitis
CPT/HCPCS: 36415; 80053; 85027; 86593